=== PATIENT | male | born 1950 | race Caucasian/White ===

== ENCOUNTER 2019-05-01 08:22 | Outpatient (REF) | payer MEDICARE, BC, SELFPAY ==
[2019-05-01 13:58] LABS: ALT 25 U/L (16-63); AST 14 U/L (15-37); Anion Gap 8.2 mmol/L (3-11); BUN 18 mg/dL (7-18); CO2 27.8 mmol/L (21.0-32.0); CREATININE 1.03 mg/dL (0.70-1.30); Calculated LDL 130 mg/dL; Chloride 102 mmol/L (98-107); Cholesterol 192 mg/dL (50-200); Glucose 100 mg/dL (70-100); HDL Cholesterol 36 mg/dL (40-60); Potassium 4.5 mmol/L (3.5-5.1); Sodium 138 mmol/L (136-145); Triglyceride 131 mg/dL (30-150)
== END 2019-05-01 08:42 ==
LOC: NCHCN 08:22
PROVIDERS: PCP Nurse Practitioner Family; Visit Provider Nurse Practitioner Family
DX: I10 Essential (primary) hypertension (principal); Z13.6 Encounter for screening for cardiovascular disorders
CPT/HCPCS: 80048; 80061; 84450; 84460

== ENCOUNTER → 2019-06-06 08:53 | Outpatient (BNVA) | payer MEDICARE, BC, SELFPAY | PROVIDERS: PCP Nurse Practitioner Family; Referring Provider Nurse Practitioner Family; Visit Provider Surgery | DX: Z12.11 Encounter for screening for malignant neoplasm of colon (principal) | CPT/HCPCS: 99203 ==

== ENCOUNTER 2019-07-02 01:58 | Outpatient (CLI) | payer MEDICARE, BC, SELFPAY ==
--- NOTE | 2019-07-02 07:30 | DI.US_ITS ---
APPROVED REPORT EXAM: Comprehensive 2D, Doppler, and color-flow Echocardiogram Patient Location: Out-Patient Ballistician: IESHA Jackson (AE) Rhythm: NSR Indications: cardiac murmur r01.1 Conclusion Left Ventricle : The left ventricle is normal size. Left ventricular systolic function is hyperdynami c. Mild concentric left ventricular hypertrophy. Sigmoid septum is present without significant obstru ctive gradients. Regional wall motion is normal. The left ventricular diastolic function is normal. L VEF is 65-70%. Right Ventricle : The right ventricle is normal size. The right ventricular systolic function is norm al. Atria : The left atrium size is normal. The right atrium size is normal. Aortic Valve : Aortic valve is probably trileaflet. The Aortic valve is midly sclerotic. No aortic re gurgitation is present. There is no aortic valvular stenosis. Mitral Valve : There is very mild mitral valve calcification. The mitral valve is mildly thickened bu t opens well. Trace mitral regurgitation. No evidence of mitral valve stenosis. Tricuspid Valve : The tricuspid valve is normal in structure. Trace tricuspid regurgitation. Pulmonic Valve : Pulmonic valve is not well visualized. 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 IVC is top normal in size and collapses >50% with inspiration. RVSP is estimated to be 35-40 mmHg. There is no prior echocardiogram available for comparison. Wall motion Left Ventricle The left ventricle is normal size. Left ventricular systolic function is hyperdynamic. Mild concentri c left ventricular hypertrophy. Sigmoid septum is present without significant obstructive gradients. Regional wall motion is normal. The left ventricular diastolic function is normal. LVEF is 65-70%. Right Ventricle The right ventricle is normal size. The right ventricular systolic function is normal. Atria The left atrium size is normal. The right atrium size is normal. Aortic Valve Aortic valve is probably trileaflet. The Aortic valve is midly sclerotic. There is no aortic valvular stenosis. No aortic regurgitation is present. Mitral Valve There is very mild mitral valve calcification. The mitral valve is mildly thickened but opens well. N o evidence of mitral valve stenosis. Trace mitral regurgitation. Tricuspid Valve The tricuspid valve is normal in structure. Trace tricuspid regurgitation. Pulmonic Valve Pulmonic valve is not well visualized. There is no pulmonic valvular regurgitation. Great Vessels Aortic root is mildly dilated. The ascending aorta is dilated (4.1cm). IVC is top normal in size and collapses >50% with inspiration. RVSP is estimated to be 35-40 mmHg Pericardium Prominent anterior epicardial fat pad is present. 2D Dimensions IVSd 1.30 cm M: 0.6-1.2 LV EDV A2C 81.50 mL PWd 1.12 cm M: 0.6 - 1.2 LV EDV A4C 95.50 mL LVDd 4.81 cm M: 4.2 - 5.9 LA Volume Index A2C 17.82 mL/m2 LVDs 3.13 cm M: 2.5 - 4.0 LA Volume Index A4C 13.11 mL/m2 Aortic Root 3.89 cm M: 3.1 - 3.7 LA Volume Index Biplane 16.55 mL/m2 RA Area A4C 12.81 cm2 LA Area A4C 12.71 cm2 LVOT 2.28 cm (M/F) 1.5-2.5 LA Area A2C 16.05 cm2 Ascending Aorta 4.09 cm M: 2.6 - 3.4 EF AP4 68.59 % LVEF (Teich) 64.03 % EF AP2 73.62 % LVEF (Pro's) 68.40 % M: 52 - 72 EF BP 68.40 % LV Volume 67.28 mL M: 62 - 150 LV Volume Index 29.37 mL/m2 M: 34 - 74 FS 34.89 % LV Diastology E Decel Time 282.00 (160-240 msec) E/A Ratio 0.60 MED E' 0.08 (>0.07 m/s) LV E/e MED 7.60 (<14) LAT E' 0.12 (>0.1 m/s) LV E/e LAT 4.93 (<14) Aortic Valve LVOT Area 4.10 cm2 LVOT Peak Bret. 1.46 m/s LVOT Mean Bret. 0.90 m/s GABRIELA Vmax 0.00 m/s LVOT Peak Gr. 8.55 mmHg GABRIELA Vmax Index 1.68 cm2/m2 LVOT Mean Gr. 3.92 mmHg GABRIELA Mean Bret. 0.00 m/s LVOT VTI 0.24 m GABRIELA Mean Bret. Index 1.30 cm2/m2 AoV Peak Bret. 1.56 (0.5-1.3 m/s) AoV Mean Bret. 1.23 m/s AO Peak GR. 9.69 mmHg AO Mean GR. 6.42 (<5 mmHg) AO VTI 0.27 (0.18-0.25 m) GABIRELA (VTI) 3.56 (2.5-4.5 cm2) GABRIELA (VTI) Index 1.55 cm/m2 Mitral Valve MV E Max Bret. 0.59 (0.4-1.3 m/s) MV A Velocity 1.02 (0.4-1.3 m/s) E/A Ratio 0.57 MV Decel. Time 281.64 (160-240 msec) MV PHT 81.67 msec MVA PHT 2.69 cm2 Tricuspid Valve TR P. Velocity 2.93 m/s TV Regurg Vmax 2.93 m/s RVSP 34.42 mmHg TR P. Gradient 34.42 mmHg
== END 2019-07-02 02:18 ==
PROVIDERS: PCP Nurse Practitioner Family; Visit Provider Nurse Practitioner Family
DX: R01.1 Cardiac murmur, unspecified (principal); I10 Essential (primary) hypertension; I35.8 Other nonrheumatic aortic valve disorders; I36.1 Nonrheumatic tricuspid (valve) insufficiency
CPT/HCPCS: 93306

== ENCOUNTER 2019-07-08 07:14 | Day surgery (SDC) | payer MEDICARE, BC, SELFPAY ==
--- NOTE | 2019-07-08 06:28 | W.COLOREPORT ---
Date of service: 07/08/19 Time of Service: 08:58 Colonoscopy Report Date of procedure: 07/08/19 Pre-op diagnosis general: Colon Cancer Screening Post-op diagnosis procedure note: other (Diverticulosis) Procedure: Colonoscopy Surgeon: Bettie Elise Anesthesia proc note operative: other (General/ ASA 2/Nguyễn Atkins CRNA) Estimated blood loss (mL): 0 Pathology: none sent Complications: None Disposition: same day Indications: Mr. Fowler is a pleasant 68 year old male seen in the office for a screening colonoscopy. Risks, benefits and complications have been reviewed. Complications include but are not limited to bleeding, pain, perforation, missed small lesion/polyp, sore throat, aspiration and adverse reaction to the medications. Questions were entertained and answered to their satisfaction and they wished to proceed. No guarantees were given or implied. Prep: Miralax/Dulcolax Procedure Start Time: 08:30 Procedure End Time: 08:53 Retraction Time: 23 minutes Findings: Moderate diverticulosis of the descending and sigmoid colon. Internal hemorrhoids and engorged vessels in the entire rectum. ? Portal hypertension Procedure Description: After informed consent was obtained the patient was taken to the procedure room and placed in a left decubitous position. Monitors were applied and a time out was done. The patients name, date of , procedure, allergies to medications and metal in their body was reviewed. The patient was then sedated. Once sedated and comfortable a rectal exam was done. External exam was normal. Internal exam revealed a normal sphincter tone and no palpable masses. The prostate felt smooth and slightly enlarged. The scope was then introduced and retro-flexed. Grade 2 internal hemorrhoids were identified. There were engorged vessels throughout the rectum. No hx of portal hypertension. Engorged vessels are suspicious for portal hypertension. There were no masses or polyps in the rectum. The scope was then advanced to the cecum without difficulty. The TI and appendiceal orifice were identified. The prep was adequate. The scope was then slowly retracted over 23 minutes back into the rectum. There were no polyps. There was moderate diverticulosis of the descending and sigmoid colon. The scope was removed and the patient was woken up and taken back to Same day surgery in stable condition. The patient tolerated the procedure well and there were no immediate complications. Follow up: The patient should follow up as needed if he develops changes in bowel habits or other new gastrointestinal complaints.
--- NOTE | 2019-07-08 06:30 | W.PM.DSUDISC ---
Discharge Plan Disposition Patient Disposition: HOME Condition: Good Discharge Details Reason For Visit: SCREENING Attending Provider: Bettie Elise Primary Care Provider: Nicole Gordon Home Meds and New Rx's Prescriptions: Continued lisinopril-hydrochlorothiazide 20-12.5 mg tablet 1 tab PO DAILY RF: 0 multivitamin Capsule 1 cap PO DAILY RF: 0 cholecalciferol (vitamin D3) [Vitamin D3] 1,000 unit Capsule 1,000 unit PO DAILY RF: 0 glucosamine sulfate [Glucosamine] 500 mg Tablet 500 mg PO BID RF: 0 Discharge Instructions Instructions: Colonoscopy (DC), Diverticulosis (DC) Additional Instructions: Findings: Diverticulosis Follow up: as needed Please call if you develop: fevers >101.5 Nausea or Vomiting Abdominal pain that is not transient DAY SURGERY UNIT POST ENDOSCOPY INSTRUCTIONS 1. Because there will be medication in your system for the next 24 hours, you may feel a little sleepy. Your coordination will be affected. Therefore: a. Do not drive or operate dangerous equipment for 24 hours. b. Do not drink alcohol beverages for 24 hours (not even beer). c. Plan to go home and rest for the day. 2. Generally there are no restrictions on your activity after a day or so has gone by, but you may feel a bit fatigued for a few days. 3 After you arrive home you may have a light meal and return to a normal diet as you can tolerate it without feeling sick to your stomach. 4. After surgery, you may feel pain or discomfort. This should be only transient, but if it persists please contact your doctor. 5. If there are any questions regarding the findings of your procedure, please feel free to contact your doctor. 6. If you are unable to contact your doctor with a problem, contact the hospital at [phone]. 7. Continue all your regular medications unless directed otherwise. I understand the above instructions and have no questions. Signature of Patient or Responsible Adult Escort Date/Time Name of Responsible Adult Escort Signature of Nurse Date/Time Activity:: Activity as Tolerated Diet:: High Fiber diet Discharge Orders Discharge Orders: Discharge Order (Routine); Ordered 07/08/19 Ordered By: Bettie Elise DS: Diagnosis Discharge Diagnosis (1) S/P colonoscopy: Status: Acute (2) Diverticulosis: Status: Acute
--- NOTE | 2019-07-08 06:32 | HPE_ITS ---
Date of service: 07/08/19 Time of Service: : Assessment and Plan Assessment and plan (1) S/P colonoscopy: Status: Acute Assessment and plan: A\\ 68 year old male who has never had a colonoscopy before. He has no family history of colon cancer and no changes in bowel habits. On exam he has a systolic murmur. He has been started on Anti-hypertensive medications for High BP. Lipid panel is normal except for a low HDL ECHO showed EF of 65 to 70 % and no aortic stenosis, trace Mitral regurgitation P\\Colonoscopy under sedation Colonoscopy prep and procedure were discussed. Risks, benefits and complications have been reviewed. Complications include but are not limited to bleeding, pain, perforation, missed small lesion/polyp, sore throat, aspiration and adverse reaction to the medications. Questions were entertained and answered to their satisfaction and they wished to proceed. No guarantees were given or implied. Z12.11 - Encounter for screening for malignant neoplasm of colon History of Present Illness Narrative: Mr. Mathur is a pleasant 68-year-old gentleman who was seen by his primary care physician for the first time in a long time due to high blood pressure. He was started on lisinopril hydrochlorothiazide. He had lab work done which showed normal kidney function. Triglycerides and cholesterol are good. He has never had a colonoscopy and is here today to discuss his first screening colonoscopy. He denies any family history of colon cancer. He denies any changes in bowel habits, melena, hematochezia, unintentional weight loss. He tells me that he has a bowel movement every day which is soft. Aside from his hypertension he denies any other cardiac history. He denies shortness of breath on exertion or chest pain. On exam he was noted to have a murmur and an ECHO was done. LVEF was 65 to 70%. There was mild Mitral valve regurgitation. No aortic valve stenosis. Review of Systems Constitutional Constitutional: Denies fever(s) Cardiovascular Cardiovascular: Denies chest pain, Denies chest pain with activity, Denies irregular heart rhythm, Denies palpitations, Denies dyspnea and Denies dyspnea on exertion Respiratory Respiratory: Denies cough, Denies dyspnea and Denies dyspnea on exertion Gastrointestinal Gastrointestinal: Reports as per HPI Endocrine Endocrine: Denies palpitations [facility] Family History (Updated 06/06/19 @ 09:24 by Bettie Elise MD) Mother Stroke Father AAA (abdominal aortic aneurysm) Social History (Updated 06/06/19 @ 09:25 by Bettie Elise MD) Smoking/Tobacco Use Status: Former Tobacco Use Quit Date: 08/27/93 Pack-years: 25 Alcohol Intake: current Alcohol Intake frequency: holidays/special occasions only Alcohol type: beer Drug use: Never Substance use type: does not use Do you feel safe at home: Yes Do you feel safe in your relationship?: Yes Additional Social history: alcohol: pt. does not remember Meds Home Medications and Allergies Home Medications Medication Instructions Recorded Confirmed Type lisinopril 20 1 tab PO DAILY 06/06/19 07/08/19 History mg-hydrochlorothiazide 12.5 mg tablet cholecalciferol (vitamin D3) 1,000 unit PO DAILY 07/04/19 07/08/19 History [Vitamin D3] multivitamin 1 cap PO DAILY 07/04/19 07/08/19 History glucosamine sulfate [Glucosamine] 500 mg PO BID 07/08/19 07/08/19 History Allergies Allergy/AdvReac Type Severity Reaction Status Date / Time [id number] Reductase AdvReac Intermediate stabbing Verified 07/08/19 07:36 Inhibitor leg pain Exam [facility] Head: normocephalic and atraumatic Resp Effort & Inspection: normal respiratory effort Auscultation: clear to auscultation bilaterally Cardio Rate: regular rate Rhythm: regular rhythm Heart Sounds: no gallops, murmur and no rubs
[2019-07-08 07:30] VITALS: BP 160/98; PULSE 118; RESP 18; TEMP 36.3; O2SAT 97
[2019-07-08] MEDS: Lactated Ringers 1,000 ML 80 ML IV (07:50)
[2019-07-08 09:35] VITALS: BP 133/86; PULSE 81; RESP 16; TEMP 36.2; O2SAT 95
== END 2019-07-08 10:35 | disposition home or self-care (01) ==
PROVIDERS: PCP Nurse Practitioner Family; Visit Provider Surgery
PROC: 0DJD8ZZ Inspection of Lower Intestinal Tract, Via Natural or Artificial Opening Endoscopic (ICD-10-PCS; CPT 45378; principal; 2019-07-08 08:30)
DX: Z12.11 Encounter for screening for malignant neoplasm of colon (principal); K64.1 Second degree hemorrhoids; K57.30 Diverticulosis of large intestine without perforation or abscess without bleeding; I10 Essential (primary) hypertension
CPT/HCPCS: G0121; NC; J2250; J3010

== ENCOUNTER 2020-01-27 02:29 | Outpatient (CLI) | payer MEDICARE, BC, SELFPAY ==
--- NOTE | 2020-01-27 08:12 | DI.US_ITS ---
EXAM: US AAA SCREENING CLINICAL HISTORY: SCREENING FOR AAA,Z82.49,FAMILY H/O AAA,PREVENTIVE HEALTH CARE,Z00.00 TECHNIQUE: Ultrasound performed using standard protocol. COMPARISON: US US ECHOCARDIOGRAM from 07/02/2019 FINDINGS: Limited abdominal ultrasound was performed to evaluate for abdominal aortic aneurysm. No aneurysm id entified, maximal proximal aortic diameter is about 2.9 cm, mid to distal abdominal aortic diameter a bout 2.7 cm.. Common iliac arteries are of normal diameter bilaterally. IMPRESSION: No evidence of abdominal aortic aneurysm. Aortic diameter is at the upper limits of normal. DATA REPOSITORY:
== END 2020-01-27 02:49 ==
PROVIDERS: PCP Nurse Practitioner Family; Visit Provider Nurse Practitioner Family
DX: Z13.6 Encounter for screening for cardiovascular disorders (principal); Z82.49 Family history of ischemic heart disease and other diseases of the circulatory system
CPT/HCPCS: 76706

== ENCOUNTER 2020-06-25 12:03 | Outpatient (REF) | payer MEDICARE, BC, SELFPAY ==
[2020-06-25 21:07] LABS: ALT 33 U/L (16-63); AST 14 U/L (15-37); Anion Gap 6.9 mmol/L (3-11); BUN 20 mg/dL (7-18); CO2 28.1 mmol/L (21.0-32.0); CREATININE 1.17 mg/dL (0.70-1.30); Calcium 8.9 mg/dL (8.5-10.1); Calculated LDL 89 mg/dL (<100); Chloride 100 mmol/L (98-107); Cholesterol 153 mg/dL (<200); Glucose 97 mg/dL (74-106); HDL Cholesterol 37 mg/dL (40-60); Potassium 4.3 mmol/L (3.5-5.1); Sodium 135 mmol/L (136-145); Triglyceride 136 mg/dL (<150)
== END 2020-06-25 12:23 ==
LOC: NCHCN 12:03
PROVIDERS: PCP Nurse Practitioner Family; Visit Provider Nurse Practitioner Family
DX: E78.5 Hyperlipidemia, unspecified (principal); I10 Essential (primary) hypertension
CPT/HCPCS: 80048; 80061; 84450; 84460

== ENCOUNTER 2021-06-22 12:27 | Outpatient (REF) | payer MEDICARE, BC, SELFPAY ==
[2021-06-22 15:00] LABS: Anion Gap 9.5 mmol/L (3-11); BUN 20 mg/dL (7-18); CO2 26.5 mmol/L (21.0-32.0); CREATININE 1.1 mg/dL (0.70-1.30); Calcium 9.2 mg/dL (8.5-10.1); Chloride 100 mmol/L (98-107); Glucose 100 mg/dL (74-106); Potassium 4.3 mmol/L (3.5-5.1); Sodium 136 mmol/L (136-145)
[2021-06-22 22:09] LABS: PSA, Screening 2.5 ng/mL (0.0-6.5)
== END 2021-06-22 12:28 | disposition home or self-care (01) ==
LOC: NCHCN 12:27
PROVIDERS: PCP Nurse Practitioner Family; Visit Provider Nurse Practitioner Family
DX: I10 Essential (primary) hypertension (principal); E78.5 Hyperlipidemia, unspecified; E66.9 Obesity, unspecified
CPT/HCPCS: 80048; 84153

== ENCOUNTER 2022-06-07 17:10 | Outpatient (REF) | payer MEDICARE, BC, SELFPAY ==
[2022-06-07 15:14] LABS: HCT 42.5 % (40.0-50.0); HGB 14.2 g/dL (13.5-17.5); MCH 31.6 pg (27.0-33.0); MCHC 33.4 % (32.0-36.0); MCV 94 fL (80-95); MPV 9.6 fL (8.0-11.0); Platelet Count 271 10^3/uL (130-400); RDW 13.3 % (11.8-14.1); RDW-SD 46.5 fL; WBC 6.68 10^3/uL (4.4-10.8)
[2022-06-07 15:32] LABS: ALT 28 U/L (16-63); AST 14 U/L (15-37); Alkaline Phosphatase 53 U/L (46-116); Anion Gap 8.2 mmol/L (3-11); BUN 22 mg/dL (7-18); Bilirubin, Total 0.3 mg/dL (0.2-1.0); CO2 28.8 mmol/L (21.0-32.0); CREATININE 1.3 mg/dL (0.70-1.30); Calcium 9.3 mg/dL (8.5-10.1); Calculated LDL 67 mg/dL (<100); Chloride 100 mmol/L (98-107); Cholesterol 139 mg/dL (<200); Estimated GFR 58.37 (mL/min/1.73m2); Glucose 128 mg/dL (74-106); HDL Cholesterol 45 mg/dL (40-60); Potassium 4.1 mmol/L (3.5-5.1); Sodium 137 mmol/L (136-145); Total Protein 7.5 g/dL (6.4-8.2); Triglyceride 137 mg/dL (<150)
[2022-06-07 22:07] LABS: PSA, Screening 2.8 ng/mL (<=6.5)
== END 2022-06-07 17:11 | disposition home or self-care (01) ==
LOC: NCHCN 17:10
PROVIDERS: PCP Nurse Practitioner Family; Visit Provider Nurse Practitioner Family
DX: I10 Essential (primary) hypertension (principal); E78.5 Hyperlipidemia, unspecified; E66.9 Obesity, unspecified; Z12.5 Encounter for screening for malignant neoplasm of prostate
CPT/HCPCS: 80053; 80061; 84153; 85027

== ENCOUNTER 2023-06-06 15:36 | Outpatient (REF) | payer MEDICARE, BC, SELFPAY ==
[2023-06-06 15:54] LABS: HGB 13.8 g/dL (13.5-17.5); MCH 31.8 pg (27.0-33.0); MCHC 33.7 % (32.0-36.0); MCV 95 fL (80-95); MPV 9.5 fL (8.0-11.0); Platelet Count 253 10^3/uL (130-400); RBC 4.34 10^6/uL (4.36-5.78); RDW-SD 45.6 fL; WBC 6.03 10^3/uL (4.4-10.8)
[2023-06-06 16:15] LABS: ALT 26 U/L (16-63); AST 14 U/L (15-37); Albumin 3.6 g/dL (3.4-5.0); Alkaline Phosphatase 43 U/L (46-116); Anion Gap 9.3 mmol/L (3-11); BUN 25 mg/dL (7-18); Bilirubin, Total 0.4 mg/dL (0.2-1.0); CO2 26.7 mmol/L (21.0-32.0); CREATININE 1.2 mg/dL (0.70-1.30); Calcium 9.5 mg/dL (8.5-10.1); Calculated LDL 68 mg/dL (<100); Chloride 101 mmol/L (98-107); Cholesterol 132 mg/dL (<200); Estimated GFR 63.85 (mL/min/1.73m2); Glucose 139 mg/dL (74-106); HDL Cholesterol 42 mg/dL (40-60); Sodium 137 mmol/L (136-145); Total Protein 7.1 g/dL (6.4-8.2); Triglyceride 111 mg/dL (<150)
[2023-06-06 22:58] LABS: PSA, Screening 3.4 ng/mL (<=6.5)
== END 2023-06-06 15:37 | disposition home or self-care (01) ==
LOC: NCHCN 15:36
PROVIDERS: PCP Nurse Practitioner Family; Visit Provider Nurse Practitioner Family
DX: E78.5 Hyperlipidemia, unspecified (principal); Z12.5 Encounter for screening for malignant neoplasm of prostate; I10 Essential (primary) hypertension; R73.03 Prediabetes
CPT/HCPCS: 80053; 80061; 84153; 85027

== ENCOUNTER 2024-06-10 17:59 | Outpatient (REF) | payer MEDICARE, BC, SELFPAY ==
--- OUTSIDE RECORDS SUMMARY | 2024-06-10 18:00 | XMS_ITS | Encounter Summary ---
Author Organization [facility] Address [address] [place] [address] Care Team Providers Care Pipe Joints Supervisor Name Role Phone Unavailable Primary Care Provider Unavailabl e Encounter Details Date Type Department Care Team (Late st Contact Info) Description 06/06/2023 Lab Requisition [facility] Pathology & Laboratory Medicine - [facility] [address] [place] [address] Outr Resulting Lab, Provider Social History Tobacco Use Types Packs/Day Years Used Date Smoking Tobacco: Never Assessed Sex and Gender Information Value Date Recorded Sex Assigned at Not on file Gender Identity Not on file Sexual Orientation Not on file documented as of this encounter Plan of Treatment Not on file documented as of this encounter Procedures Procedure Name Priority Date/Time Associated Diagnosis Comments PSA TOTAL, DIAGNOSTIC Routine 06/06/2023 9:00 EDT documented in this encounter Results * PSA TOTAL, DIAGNOSTIC (06/06/2023 9:00 EDT) PSA 3.4 <=6.5 ng/mL 06/06/2023 22:53 EDT [facility] Blood VENOUS BLOOD / Unknown 06/06/2023 9:00 EDT 06/06/2023 21:56 EDT Narrative [facility] - 06/06/2023 22:53 EDT NOTE: Serum PSA concentration should not be interpreted as absolute evidence for the presence or absence of malignant disease. Assayed on Siemens ADVIA Centaur XPT using chemiluminescent technology.??Values obtained by using different assay methods cannot be used interchangeably. Provider Outr Resulting Lab CHEMISTRY & BLOOD GAS ORDERABLES [facility] [address] [place] [address] documented in this encounter Visit Diagnoses Not on filedocumented in this encounter
--- OUTSIDE RECORDS SUMMARY | 2024-06-10 18:00 | XMS_ITS | Clinical Summary ---
Author Organization [facility] Address [address] [place] [address] Care Team Providers Care Multiple Sclerosis Nurse Name Role Phone Unavailable Primary Care Provider Unavailabl e Social History Tobacco Use Types Packs/Day Years Used Date Smoking Tobacco: Never Assessed Sex and Gender Information Value Date Recorded Sex Assigned at Not on file Gender Identity Not on file Sexual Orientation Not on file Plan of Treatment Health Maintenance Due Date Last Done Comments Hepatitis C Screen 1950 RSV Immunization ( o r 60+ Years) (1 - 1-dose 60+ series) 2009 Fall Risk Screening 2014 COVID-19 Vaccine (2022-24 season) 2023
--- OUTSIDE RECORDS SUMMARY | 2024-06-10 18:00 | XMS_ITS | Referral Summary ---
Author Organization [facility] Address [address] [place] [address] Care Team Providers Care Designated Broker Name Role Phone Unavailable Primary Care Provider Unavailabl e Social History Tobacco Use Types Packs/Day Years Used Date Smoking Tobacco: Never Assessed Sex and Gender Information Value Date Recorded Sex Assigned at Not on file Gender Identity Not on file Sexual Orientation Not on file Plan of Treatment Not on file
--- OUTSIDE RECORDS SUMMARY | 2024-06-10 18:00 | XMS_ITS | Encounter Summary ---
Author Organization [facility] Address [address] [place] [address] Care Team Providers Care Substation Operator Automatic Name Role Phone Unavailable Primary Care Provider Unavailabl e Encounter Details Date Type Department Care Team (Late st Contact Info) Description 06/22/2021 Lab Requisition [facility] Pathology & Laboratory Medicine - [facility] [address] [place] [address] Outr Resulting Lab, Provider Social History Tobacco [...] Associated Diagnosis Comments PSA TOTAL, DIAGNOSTIC Routine 06/22/2021 9:25 EDT documented in this encounter Results * PSA TOTAL, DIAGNOSTIC (06/22/2021 9:25 EDT) PSA 2.5 0.0 - 6.5 ng/mL 06/22/2021 22:04 EDT [facility] Blood VENOUS BLOOD / Unknown 06/22/2021 9:25 EDT 06/22/2021 21:14 EDT Narrative [facility] - 06/22/2021 22:04 EDT NOTE: Serum PSA concentration should not be interpreted as absolute evidence for the presence or absence of malignant disease. Assayed on Siemens ADVIA Centaur XPT using chemiluminescent technology.??Values obtained by using different assay methods cannot be used interchangeably. Provider Outr Resulting Lab CHEMISTRY & BLOOD GAS ORDERABLES [facility] [address] [place] [address] documented in this encounter Visit Diagnoses Not on filedocumented in this encounter
--- OUTSIDE RECORDS SUMMARY | 2024-06-10 18:00 | XMS_ITS | Encounter Summary ---
Author Organization [facility] Address [address] [place] [address] Care Team Providers Care Railcar Carpenter Name Role Phone Unavailable Primary Care Provider Unavailabl e Encounter Details Date Type Department Care Team (Late st Contact Info) Description 06/07/2022 Lab Requisition [facility] Pathology & Laboratory Medicine - [facility] [address] [place] [address] Outr Resulting Lab, Provider Social History Tobacco [...] Associated Diagnosis Comments PSA TOTAL, DIAGNOSTIC Routine 06/07/2022 9:00 EDT documented in this encounter Results * PSA TOTAL, DIAGNOSTIC (06/07/2022 9:00 EDT) PSA 2.8 <=6.5 ng/mL 06/07/2022 22:03 EDT [facility] Blood VENOUS BLOOD / Unknown 06/07/2022 9:00 EDT 06/07/2022 21:16 EDT Narrative [facility] - 06/07/2022 22:03 EDT NOTE: Serum PSA concentration should not be interpreted as absolute evidence for the presence or absence of malignant disease. Assayed on Siemens ADVIA Centaur XPT using chemiluminescent technology.??Values obtained by using different assay methods cannot be used interchangeably. Provider Outr Resulting Lab CHEMISTRY & BLOOD GAS ORDERABLES [facility] [address] [place] [address] documented in this encounter Visit Diagnoses Not on filedocumented in this encounter
[2024-06-10 21:31] LABS: HGB 14.2 g/dL (13.5-17.5); MCH 32.3 pg (27.0-33.0); MCHC 33.8 % (32.0-36.0); MCV 96 fL (80-95); MPV 9.8 fL (8.0-11.0); Platelet Count 261 10^3/uL (130-400); RDW 13.1 % (11.8-14.1); RDW-SD 45.9 fL; WBC 6.25 10^3/uL (4.4-10.8)
[2024-06-10 21:46] LABS: Hemoglobin A1C 5.8 % (<5.7)
[2024-06-10 21:53] LABS: ALT 25 U/L (16-63); AST 13 U/L (15-37); Albumin 3.9 g/dL (3.4-5.0); Alkaline Phosphatase 57 U/L (46-116); Anion Gap 9.9 mmol/L (3-11); BUN 22 mg/dL (7-18); Bilirubin, Total 0.51 mg/dL (0.2-1.0); CO2 26.1 mmol/L (21.0-32.0); CREATININE 1.2 mg/dL (0.70-1.30); Calcium 9.6 mg/dL (8.5-10.1); Calculated LDL 62 mg/dL (<100); Chloride 103 mmol/L (98-107); Cholesterol 145 mg/dL (<200); Estimated GFR 63.46 (mL/min/1.73m2); Glucose 103 mg/dL (74-106); HDL Cholesterol 43 mg/dL (40-60); Potassium 4.4 mmol/L (3.5-5.1); Sodium 139 mmol/L (136-145); Total Protein 7.4 g/dL (6.4-8.2); Triglyceride 201 mg/dL (<150)
[2024-06-11 18:38] LABS: PSA, Screening 3.1 ng/mL (<=6.5)
== END 2024-06-10 18:00 | disposition home or self-care (01) ==
LOC: NCHCN 17:59
PROVIDERS: PCP Nurse Practitioner Family; Visit Provider Nurse Practitioner Family
DX: E78.5 Hyperlipidemia, unspecified (principal); R73.03 Prediabetes; Z12.5 Encounter for screening for malignant neoplasm of prostate
CPT/HCPCS: 80053; 80061; 84153; 85027; 83036

== ENCOUNTER 2025-07-09 09:42 | Outpatient (REF) | payer MEDICARE, BC, SELFPAY ==
[2025-07-09 16:11] LABS: HCT 42.1 % (40.0-50.0); HGB 14.1 g/dL (13.5-17.5); MCH 31.6 pg (27.0-33.0); MCHC 33.5 % (32.0-36.0); MCV 94 fL (80-95); MPV 9.7 fL (8.0-11.0); Platelet Count 267 10^3/uL (130-400); RBC 4.46 10^6/uL (4.36-5.78); RDW 13.2 % (11.8-14.1); RDW-SD 45.7 fL; WBC 7.99 10^3/uL (4.4-10.8)
[2025-07-09 17:51] LABS: Hemoglobin A1C 5.7 % (<5.7)
[2025-07-09 18:07] LABS: ALT 20 U/L (10-49); AST 18 U/L (<34); Albumin 4.2 g/dL (3.4-5.0); Alkaline Phosphatase 49 U/L (46-116); Anion Gap 9.3 mmol/L (3-11); BUN 18 mg/dL (9-23); Bilirubin, Total 0.50 mg/dL (0.2-1.2); CO2 24.7 mmol/L (20.0-31.0); Calcium 9.5 mg/dL (8.3-10.6); Chloride 103 mmol/L (98-107); Cholesterol 145 mg/dL (<200); Glucose 95 mg/dL (74-106); HDL Cholesterol 43 mg/dL (>40); Potassium 4.3 mmol/L (3.5-5.1); Sodium 137 mmol/L (136-145); Total Protein 7.3 g/dL (5.7-8.2)
[2025-07-10 18:04] LABS: PSA, Screening 3.5 ng/mL (<=6.5)
== END 2025-07-09 09:43 | disposition home or self-care (01) ==
LOC: NCHCN 09:42
PROVIDERS: PCP Nurse Practitioner Family; Visit Provider Nurse Practitioner Family
DX: R73.03 Prediabetes (principal); E78.5 Hyperlipidemia, unspecified; I10 Essential (primary) hypertension; Z12.5 Encounter for screening for malignant neoplasm of prostate
CPT/HCPCS: 80053; 80061; 84153; 85027; 83036